=== PATIENT | female | born 2000 | race Caucasian/White ===

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

== ENCOUNTER 2021-10-03 07:54 | Outpatient (CLI) | payer OTHER, SELFPAY ==
--- NOTE | ~2021-10-03 | CT_ITS ---
EXAMINATION: CT abdomen pelvis wo con EXAM DATE: 10/03/2021 08:15 INDICATION: R10.9 - Unspecified abdominal pain TECHNIQUE: Spiral CT of the abdomen and pelvis was performed without contrast. Axial, coronal and sag ittal images were reviewed. The dose-length product (DLP) for this examination was 224.25 mGy-cm. T he exposure was tailored according to patient size (auto mA exposure control), and iterative reconstr uction (ASIR) was used as additional dose reduction technique. There is no prior study for compariso n. FINDINGS: There is no nephrolithiasis or hydronephrosis. The uterus is anteverted and morphological ly normal. The bladder is unremarkable. The liver, spleen, adrenal glands and pancreas are unremar kable. Gallbladder is unremarkable. No biliary obstruction. There is no retroperitoneal or pelvic lymphadenopathy. The appendix is normal. The stomach and small bowel are unremarkable. There is expected amount of c olonic stool. No free intraperitoneal gas. The heart is normal in size. There are no pericardial or pleural effusions. The lung bases are unremarkable. There are no osteoblastic or osteolytic les ions identified. IMPRESSION: 1. No nephrolithiasis, hydronephrosis or acute intra-abdominal findings. Reviewed, dictated and finalized at location B. [employer]
== END 2021-10-03 07:55 | disposition home or self-care (01) ==
PROVIDERS: PCP Physician Assistant; Visit Provider Physician Assistant
DX: R10.9 Unspecified abdominal pain (principal)
CPT/HCPCS: 74176

== ENCOUNTER 2022-01-31 10:31 | Outpatient (CLI) | payer OTHER, SELFPAY ==
[2022-01-31 11:06] LABS: Hematocrit 42.2 % (37.0-47.0); Hemoglobin 13.7 g/dL (12.0-15.0); Mean Corpuscular HGB Conc 32.5 g/dl (32-36); Mean Corpuscular Hemoglobin 30.9 pg (26-34); Mean Platelet Volume 11.3 fl (7.4-10.4); Platelet Count Result 199 k/mm3 (150-375); Red Blood Count 4.44 M/mm3 (4.2-5.4); Red Cell Distribution Width 12.4 % (11.5-14.5); White Blood Count 9.2 K/mm3 (4.5-10.0)
[2022-01-31 11:35] LABS: Alanine Aminotransferase 16 U/L (6-35); Albumin Level 4.2 g/dL (3.5-5.1); Alkaline Phosphatase 61 U/L (38-126); Anion Gap 4 mmol/L (8-16); Aspartate Amino Transferase 30 U/L (14-36); Bilirubin,Total 1.5 mg/dL (0.2-1.3); Blood Urea Nitrogen 11 mg/dL (7-17); Calcium 8.3 mg/dL (8.4-10.2); Carbon Dioxide 26 mmol/L (22-30); Chloride 107 mmol/L (98-107); Estimated Glomerular Filt Rate > 60; Glucose 83 mg/dL (65-110); Potassium 4.2 mmol/L (3.4-5.0); Sodium 137 mmol/L (137-145)
== END 2022-01-31 10:32 | disposition home or self-care (01) ==
PROVIDERS: PCP Internal Medicine; Visit Provider Nurse Practitioner
DX: R10.11 Right upper quadrant pain (principal); R11.10 Vomiting, unspecified
CPT/HCPCS: 36415; 80053; 85027

== ENCOUNTER 2022-02-09 01:33 | Day surgery (SDC) | payer OTHER, SELFPAY ==
[2022-02-02 13:37] VITALS: BMI 20.4
--- NOTE | 2022-02-07 14:55 | P.PNAN_ITS ---
Anes - Initial Pre Proc Eval Procedure: Operation Date: 02/08/22 10:45 Proposed Procedures p Esophagogastroduodenoscopy - Esvin Crandall MD Date/Time: 02/07/22 14:55 Surgeon: Esvin Crandall MD Pre Op Diagnosis: URQP, vomiting Patient Data Age: 21 Gender: F Height: 1.63 m Weight: 54 kg Allergies Allergy/AdvReac Type Severity Reaction Status Date / Time No Known Allergies Allergy Verified 02/02/22 13:36 Home Medications Medication Instructions Recorded Confirmed Type cetirizine 10 mg tablet (Zyrtec) 10 mg PO DAILY PRN Allergy Symptoms 07/01/21 02/02/22 History montelukast 10 mg tablet 10 mg PO QHS #90 tabs 07/01/21 02/02/22 Rx (Singulair) dicyclomine 10 mg capsule 10 mg PO .q6h prn abdominal pain 01/31/22 02/02/22 Rx #90 caps famotidine 40 mg tablet 40 mg PO DAILY #30 tabs 01/31/22 02/02/22 Rx ondansetron HCl 4 mg tablet 4 mg PO Q8H PRN nausea and 01/31/22 02/02/22 Rx vomiting #20 tabs Results Review: All pre-operative results and documents have been reviewed as part of the pre-operative evaluation. [facility] [place] Past Medical History Medical History (Updated 01/31/22 @ 12:41 by Grace Sahu, MARTHA) Allergies Anxiety Asthma Migraine Total bilirubin, elevated Family History Family History Father Thyroid disorder Mother Hypertension Depression Thyroid disorder Grandparent Depression Hypertension Asthma Lung cancer Cerebrovascular accident Heart disease Thyroid disorder Social History Social History Smoking status: Never smoker Second hand tobacco smoke exposure: No Alcohol intake: never Substance use: never Substance use type: does not use Living arrangements: with family Spiritual care concerns: No Anes - Eval Final PreProcedure Day of Procedure 02/07/22 14:55 Patient weight: normal Heart: regular rate and rhythm Lungs: clear to auscultation and normal air movement Airway: Mallampati scale class II Neurological: alert and oriented Last oral intake: >/= 8 hours ASA classification: II Emergent: no Anesthetic plan: proceed Anesthesia type and monitoring: general GIVS Results Review: All pre-operative results and documents have been reviewed as part of the pre- operative evaluation. Informed Consent: The patient's anesthetic plan and its attendant risks and benefits were discussed with the patient/family/POA. Questions were solicited and answers provided to the satisfaction of the patient/family/POA.
--- NOTE | 2022-02-07 15:52 | PM.HPGS ---
History of Present Illness History of Present Illness Consent: Risks, benefits, and alternatives have been discussed and questions answered. Patient agrees to proceed with procedure. Chief complaint: URQP, vomiting Narrative: Uzma Pruett is a 21 year old female who has past medical history of anxiety, acne, and seasonal allergies.? She was referred by her PCP for abdominal pain.? She states around 5-6 months ago she began having intermittent right upper quadrant abdominal pain with radiation into her bilateral lower quadrants into her bilateral lower back.? She states this initially started out as ?cramps and progressively have been worsening.? She saw ops analyst on 2 different occasions with no pelvic abnormalities per patient.? She states the pain is getting more worse and typically occur 1 hour after eating and can last up to 24 hours.? She states this is now making her ?sick causing her to vomit.? This occurs 3-4 times per week and it initially it started out 1-2 times per week.? She denies any GERD, dysphagia, odynophagia, early satiety.? Her appetite is ?fine? but states with an hour of eating she just does not feel good?. CT abdomen pelvis without contrast 10/03/2021 that was unremarkable completed by PCP. Review of Systems Review of Systems: All systems reviewed & are unremarkable except as noted in HPI and below PMFSH Past Medical History Medical History Allergies Anxiety Asthma Migraine Total bilirubin, elevated Family History Family History Father Thyroid disorder Mother Hypertension Depression Thyroid disorder Grandparent Depression Hypertension Asthma Lung cancer Cerebrovascular accident Heart disease Thyroid disorder Social History Social History Smoking status: Never smoker Second hand tobacco smoke exposure: No Alcohol intake: never Substance use: never Substance use type: does not use Living arrangements: with family Spiritual care concerns: No Meds Home Medications and Allergies Home Medications Medication Instructions Recorded Confirmed Type cetirizine 10 mg tablet (Zyrtec) 10 mg PO DAILY PRN Allergy Symptoms 07/01/21 02/02/22 History montelukast 10 mg tablet 10 mg PO QHS #90 tabs 07/01/21 02/02/22 Rx (Singulair) dicyclomine 10 mg capsule 10 mg PO .q6h prn abdominal pain 01/31/22 02/02/22 Rx #90 caps famotidine 40 mg tablet 40 mg PO DAILY #30 tabs 01/31/22 02/02/22 Rx ondansetron HCl 4 mg tablet 4 mg PO Q8H PRN nausea and 01/31/22 02/02/22 Rx vomiting #20 tabs hyoscyamine sulfate 0.125 mg 0.125 mg PO Q6H PRN dyspepsia #30 02/09/22 Rx disintegrating tablet tabs Allergies Allergy/AdvReac Type Severity Reaction Status Date / Time No Known Allergies Allergy Verified 02/02/22 13:36 Exam Const: General: alert Orientation/consciousness: patient oriented x3 Resp: Auscultation: clear to auscultation bilaterally Cardio: Rhythm: regular rhythm GI: GI Palp: Yes Soft to palpation and No Tenderness to palpation present (GI) Neuro: General: patient oriented x3 Assessment and Plan Assessment and plan (1) Epigastric pain: Code(s): R10.13 - Epigastric pain Status: Acute Assessment and Plan: EGD with possible biopsy or dilatation or cautery.
--- NOTE | 2022-02-08 15:29 | WPDANESEPPF ---
Anes - Initial Pre Proc Eval Procedure: Operation Date: 02/09/22 09:00 Proposed Procedures p Esophagogastroduodenoscopy - Esvin Crandall MD Date/Time: 02/08/22 15:29 Surgeon: Esvin Crandall MD Pre Op Diagnosis: URQP, vomiting Patient Data Age: 21 Gender: F Height: 1.63 m Weight: 54 kg Allergies Allergy/AdvReac Type Severity Reaction Status Date / Time No Known Allergies Allergy Verified 02/02/22 13:36 Home Medications Medication Instructions Recorded Confirmed Type cetirizine 10 mg tablet (Zyrtec) 10 mg PO DAILY PRN Allergy Symptoms 07/01/21 02/02/22 History montelukast 10 mg tablet 10 mg PO QHS #90 tabs 07/01/21 02/02/22 Rx (Singulair) dicyclomine 10 mg capsule 10 mg PO .q6h prn abdominal pain 01/31/22 02/02/22 Rx #90 caps famotidine 40 mg tablet 40 mg PO DAILY #30 tabs 01/31/22 02/02/22 Rx ondansetron HCl 4 mg tablet 4 mg PO Q8H PRN nausea and 01/31/22 02/02/22 Rx vomiting #20 tabs hyoscyamine sulfate 0.125 mg 0.125 mg PO Q6H PRN dyspepsia #30 02/09/22 Rx disintegrating tablet tabs Patient hx anesthesia problems: none Family hx anesthesia problems: none Results Review: All pre-operative results and documents have been reviewed as part of the pre-operative evaluation. [facility] Past Medical History Medical History Allergies Anxiety Asthma Migraine Total bilirubin, elevated Family History Family History Father Thyroid disorder Mother Hypertension Depression Thyroid disorder Grandparent Depression Hypertension Asthma Lung cancer Cerebrovascular accident Heart disease Thyroid disorder Social History Social History Smoking status: Never smoker Second hand tobacco smoke exposure: No Alcohol intake: never Substance use: never Substance use type: does not use Spiritual care concerns: No Anes - Eval Final PreProcedure Day of Procedure 02/08/22 15:29 Patient weight: normal Heart: regular rate and rhythm Lungs: clear to auscultation Airway: Mallampati scale class II Neurological: alert and oriented Last oral intake: >/= 8 hours ASA classification: II Emergent: no Anesthetic plan: proceed Anesthesia type and monitoring: general GIVS and standard monitoring Results Review: All pre-operative results and documents have been reviewed as part of the pre-operative evaluation. Informed Consent: The patient's anesthetic plan and its attendant risks and benefits were discussed with the patient/family/POA. Questions were solicited and answers provided to the satisfaction of the patient/family/POA.
[2022-02-09 08:13] VITALS: BMI 18.9
[2022-02-09 08:18] VITALS: BP 119/74; PULSE 87; RESP 16; TEMP 36.4; O2SAT 100
[2022-02-09] MEDS: LACTATED RINGERS 1,000 ML 150 ML IV CONT (08:33)
[2022-02-09 08:45] VITALS: BP 98/63; PULSE 89; RESP 17; O2SAT 99
[2022-02-09 08:55] VITALS: BP 93/63; PULSE 84; RESP 18; O2SAT 99
[2022-02-09 09:05] VITALS: BP 93/59; PULSE 73; RESP 15; O2SAT 99
== END 2022-02-09 09:18 | disposition home or self-care (01) ==
PROVIDERS: PCP Internal Medicine; Visit Provider Internal Medicine Gastroenterology
PROC: 0DJ08ZZ Inspection of Upper Intestinal Tract, Via Natural or Artificial Opening Endoscopic (ICD-10-PCS; CPT 43235; principal; 2022-02-09 09:00)
DX: K21.9 Gastro-esophageal reflux disease without esophagitis (principal); J45.909 Unspecified asthma, uncomplicated
CPT/HCPCS: 43239; 87081; 88305; J2704; J7120

== ENCOUNTER 2022-03-16 09:10 | Outpatient (CLI) | payer OTHER, SELFPAY ==
[2022-03-16 10:09] LABS: Alanine Aminotransferase 20 U/L (6-35); Albumin Level 4.6 g/dL (3.5-5.1); Alkaline Phosphatase 82 U/L (38-126); Aspartate Amino Transferase 26 U/L (14-36); Bilirubin,Total 1.4 mg/dL (0.2-1.3)
== END 2022-03-16 09:11 | disposition home or self-care (01) ==
PROVIDERS: PCP Internal Medicine; Visit Provider Nurse Practitioner
DX: R10.11 Right upper quadrant pain (principal); R11.10 Vomiting, unspecified; R17 Unspecified jaundice
CPT/HCPCS: 36415; 80076

== ENCOUNTER 2022-04-05 07:31 | Outpatient (CLI) | payer OTHER, SELFPAY ==
--- NOTE | ~2022-04-05 | NM_ITS ---
EXAMINATION: NM hepatobiliary w pharm DATE: 04/05/2022 10:07 INDICATION: Abdominal pain. COMPARISON: CT abdomen and pelvis 10/03/21 TECHNIQUE: 5 mCi Tc-99m mebrofenin (Choletec) was administered intravenously. Scintigraphic images o f the abdomen were obtained for one hour. Then, 1.2mcg sincalide (Kinevac) IV was administered, and i maging was continued for 30 minutes. FINDINGS: There is normal clearance of radiotracer from the blood pool. There is homogeneous tracer u ptake by the liver. Activity progresses to the bowel and gallbladder. Gallbladder ejection fraction (GBEF) was 74%. Note that most patients with gallbladder dysfunction have GBEF < 35%, which overlaps with the broad normal range of 10-90%. IMPRESSION: 1. Normal hepatobiliary scintigraphy. Reviewed, dictated and finalized at location A.
== END 2022-04-05 07:32 | disposition home or self-care (01) ==
LOC: ANHIMG 07:36
PROVIDERS: PCP Internal Medicine; Visit Provider Nurse Practitioner
DX: R10.11 Right upper quadrant pain (principal); R11.0 Nausea; R17 Unspecified jaundice
CPT/HCPCS: 78227; A9537; J2805

== ENCOUNTER 2022-11-07 16:00 | Outpatient (CLI) | payer OTHER, SELFPAY ==
[2022-11-07 16:49] LABS: Beta HCG Quantitative 87.85 mIU/ML
== END 2022-11-07 16:01 | disposition home or self-care (01) ==
LOC: ANHLAB 16:04
PROVIDERS: PCP Internal Medicine; Visit Provider Obstetrics & Gynecology
DX: O20.0 Threatened abortion (principal)
CPT/HCPCS: 36415; 84702

== ENCOUNTER 2022-11-09 08:56 | Outpatient (CLI) | payer OTHER, SELFPAY ==
[2022-11-09 10:12] LABS: Beta HCG Quantitative 69.17 mIU/ML
== END 2022-11-09 08:57 | disposition home or self-care (01) ==
LOC: ANHLAB 08:58
PROVIDERS: PCP Internal Medicine; Visit Provider Obstetrics & Gynecology
DX: O02.0 Blighted ovum and nonhydatidiform mole (principal)
CPT/HCPCS: 36415; 84702; 85461; 86850; 86900; 86901

== ENCOUNTER 2022-11-20 14:57 | Outpatient (CLI) | payer OTHER, SELFPAY ==
[2022-11-20 16:25] LABS: Beta HCG Quantitative 21.32 mIU/ML
== END 2022-11-20 14:58 | disposition home or self-care (01) ==
LOC: ANHLAB 14:59
PROVIDERS: PCP Internal Medicine; Visit Provider Advanced Practice Midwife
DX: O02.1 Missed abortion (principal)
CPT/HCPCS: 36415; 84702

== ENCOUNTER 2023-05-17 11:39 | Outpatient (CLI) | payer OTHER, SELFPAY ==
--- NOTE | 2023-05-17 12:08 | ECG_ITS ---
Measurements Intervals [place] Rate: 73 P: 41 GA: 173 QRS: 48 QRSD: 92 T: 34 QT: 352 QTc: 389 Interpretive Statements SINUS RHYTHM INCOMPLETE RIGHT BUNDLE BRANCH BLOCK BORDERLINE ECG NO PREVIOUS ECG AVAILABLE FOR COMPARISON Electronically Signed On 05-17-2023 12:33:46 CDT by Zana Dodge D.O.
[2023-05-17 12:13] LABS: Basophils Absolute Auto 0.1 K/mm3 (0.0-0.1); Basophils Percent Auto 0.9 % (0.2-1.2); Eosinophils Absolute Auto 0.6 K/mm3 (0-0.3); Eosinophils Percent Auto 9.2 % (0-4.4); Hemoglobin 14.4 g/dL (12.0-15.0); Immature Granulocyte Absolute 0.02 K/mm3 (0.00-0.031); Immature Granulocyte Percent A 0.3 % (0-0.5); Lymphocytes Percent Auto 32.8 % (18.3-44.2); Mean Corpuscular HGB Conc 33.5 g/dl (32-36); Mean Corpuscular Volume 92.7 fl (80-100); Mean Platelet Volume 11.1 fl (7.4-10.4); Monocytes Absolute Auto 0.6 K/mm3 (0.1-0.6); Monocytes Percent Auto 9.1 % (2.6-8.5); Neutrophils Absolute Auto 3.2 K/mm3 (1.3-6.7); Neutrophils Percent Auto 47.7 % (45.5-73.1); Platelet Count Result 232 k/mm3 (150-375); Red Blood Count 4.64 M/mm3 (4.2-5.4); Red Cell Distribution Width 12.4 % (11.5-14.5); White Blood Count 6.7 K/mm3 (4.5-10.0)
[2023-05-17 12:24] LABS: Alanine Aminotransferase 19 U/L (6-35); Albumin Level 4.5 g/dL (3.5-5.1); Alkaline Phosphatase 72 U/L (38-126); Anion Gap 6 mmol/L (8-16); Aspartate Amino Transferase 24 U/L (14-36); Bilirubin,Total 0.9 mg/dL (0.2-1.3); Blood Urea Nitrogen 11 mg/dL (7-17); Calcium 8.9 mg/dL (8.4-10.2); Carbon Dioxide 29 mmol/L (22-30); Chloride 104 mmol/L (98-107); Cholesterol 205 mg/dL (0-200); Estimated Glomerular Filt Rate > 60; Glucose 86 mg/dL (65-110); HDL Direct 88 mg/dL; Potassium 3.9 mmol/L (3.4-5.0); Sodium 139 mmol/L (137-145); Triglycerides 63 mg/dL (<150)
[2023-05-17 12:36] LABS: LDL Cholesterol Direct 89 mg/dL
[2023-05-17 12:42] LABS: Beta HCG Quantitative < 2.39 mIU/ML
[2023-05-17 23:03] LABS: Folic Acid 16.7 ng/mL (2.76->20)
== END 2023-05-17 11:40 | disposition home or self-care (01) ==
PROVIDERS: PCP Physician Assistant; Referring Provider Nurse Practitioner; Visit Provider Physician Assistant
DX: R55 Syncope and collapse (principal); N91.2 Amenorrhea, unspecified; I45.19 Other right bundle-branch block
CPT/HCPCS: 36415; 80053; 80061; 82607; 82746; 84443; 84702; 85025; 93005